=== PATIENT | male | born 1965 | race Caucasian/White ===

== ENCOUNTER 2016-07-30 10:30 | Emergency (ER) | payer SELFPAY ==
[2016-07-30] MEDS ORDERED: Aspirin 81 MG Tab.Chew PO ONE (10:41)
--- NOTE | 2016-07-30 10:49 | EDM.PDOC ---
ED HPI GENERAL MEDICAL PROBLEM - General Chief Complaint: Chest Pain Stated Complaint: CHEST PAINS Time Seen by Provider: 07/30/16 10:40 Source of Information: Reports: Patient History Limitations: Reports: No Limitations - History of Present Illness INITIAL COMMENTS - FREE TEXT/NARRATIVE: HISTORY AND PHYSICAL: History of present illness: [Patient comes to the emergency room for evaluation of chest pain. This is been occurring on and off for the past 2-3 weeks. He is new to [facility] and has not established care with a local primary care provider. His became more concerned about the chest pain that he was experiencing and insisted that he reports the ER for evaluation today. He states that he has not any pain in his chest for the past 2-3 days. The pain has occurred a total of 5-6 times over the past 2-3 weeks, and always occurs when he is exerting himself. he's never had any chest pain that occurred at rest. 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 He has experienced the pain in his chest when working. He describes the pain as a heaviness in the center of his chest without radiation. No stabbing or shooting pain. He denies jaw neck shoulder and arm pain. He does not have any significant shortness of breath when chest pain occurs. Pain typically lasts 30-60 seconds and then resolves without incident. He has not taken any medications for his symptoms. Medical history is significant for hypertension. For which he takes 100 mg of atenolol and 100 mg of losartan daily. Did not take his medications today. Denies personal history of heart attack stroke or diabetes. Mother's side of the family is significant for GA though none in patient's mother or patient siblings. Patient smokes one half pack of cigarettes per day but has not smoked in the last 6 days. No recent illness or infection. No recent surgeries or hospitalizations. No change in appetite. Denies abdominal pain, nausea vomiting constipation diarrhea. No dysuria or change in stools.] Review of systems: As per history of present illness and below otherwise all systems reviewed and negative. Past medical history: As per history of present illness and as reviewed below otherwise noncontributory. Surgical history: As per history of present illness and as reviewed below otherwise noncontributory. Social history: No reported history of drug or alcohol abuse. Family history: As per history of present illness and as reviewed below otherwise noncontributory. Physical exam: HEENT: Atraumatic, normocephalic. Oral mucous membranes are moist. neck supple, nontender, trachea midline no lymphadenopathy.. Lungs: Clear to auscultation, breath sounds equal bilaterally, chest nontender. Heart: S1S2, regular rate rhythm. negative for clicks, murmurs, rubs, or JVD. Abdomen: Soft, nondistended, nontender. Pelvis: Stable nontender. Genitourinary: Deferred. Rectal: Deferred. Extremities: Atraumatic, patient is ambulatory without assistance or abnormality. negative for cords or calf pain. Neuro: Awake, alert, oriented. Motor and sensory unremarkable throughout. Exam nonfocal. Diagnostics: [EKG, chest x-ray, CBC, CMP, troponin] Therapeutics: [Aspirin 324 mg chewed] Impression: [Chest pain] Plan: [EKG shows normal sinus rhythm. Troponin negative. CBC and CMP are unremarkable. Patient remains pain-free while in the ER. Rx given for nitroglycerin 0.4 mg #1 bottle sig one tablet sublingually as instructed x 3, 0 refills. Instructed on use. Start aspirin 325 mg daily. 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 Establish w/ a local PCP. All patient's questions are answered and concerns are addressed. ] Definitive disposition and diagnosis as appropriate pending reevaluation and review of above. chest Pain Score (Numeric/FACES): 1 - Related Data Allergies Allergy/AdvReac Type Severity Reaction Status Date / Time No Known Allergies Allergy Verified 07/30/16 10:35 Home Meds: Home Meds Atenolol 100 mg PO DAILY 07/30/16 [History] Loratadine [Claritin] 10 mg PO DAILY 07/30/16 [History] Losartan Potassium 100 mg PO DAILY 07/30/16 [History] ED ROS GENERAL - Review of Systems Review Of Systems: ROS reveals no pertinent complaints other than HPI. ED EXAM, GENERAL - Physical Exam Exam: See Below Course - Vital Signs Last Recorded V/S: Last Vital Signs Temp 98 F 07/30/16 10:38 Pulse 78 07/30/16 13:11 Resp 16 07/30/16 13:11 BP 160/70 H 07/30/16 13:11 Pulse Ox 98 07/30/16 13:11 - Orders/Labs/Meds Orders: Active Orders 24 hr Category Date Time Status EKG Documentation Completion [RC] STAT Care 07/30/16 10:41 Active Chest 1V Frontal [CR] Stat Exams 07/30/16 10:45 Taken Labs: Laboratory Tests 07/30/16 07/30/16 07/30/16 Range/Units 10:45 10:45 10:45 WBC 8.31 (4.0-11.0) K/uL RBC 4.83 (4.50-5.90) M/uL Hgb 15.0 (13.0-17.0) g/dL Hct 45.3 (38.0-50.0) % MCV 93.8 (80.0-98.0) fL MCH 31.1 (27.0-32.0) pg MCHC 33.1 (31.0-37.0) g/dL RDW Std Deviation 47.1 (28.0-62.0) fl RDW Coeff of Delia 14 (11.0-15.0) % Plt Count 228 (150-400) K/uL MPV 11.50 (7.40-12.00) fL Neut % (Auto) 56.2 (48.0-80.0) % Lymph % (Auto) 32.1 (16.0-40.0) % [place] % (Auto) 7.0 (0.0-15.0) % Eos % (Auto) 4.3 (0.0-7.0) % Baso % (Auto) 0.4 (0.0-1.5) % Neut # (Auto) 4.7 (1.4-5.7) K/uL Lymph # (Auto) 2.7 H (0.6-2.4) K/uL [place] # (Auto) 0.6 (0.0-0.8) K/uL Eos # (Auto) 0.4 (0.0-0.7) K/uL Baso # (Auto) 0.0 (0.0-0.1) K/uL Nucleated RBC % 0.0 /100WBC Nucleated RBCs # 0 K/uL Sodium 140 (136-146) mmol/L Potassium 4.1 (3.5-5.1) mmol/L Chloride 108 (98-110) mmol/L Carbon Dioxide 24 (21-31) mmol/L BUN 16 (6.0-23.0) mg/dL Creatinine 1.1 (0.6-1.5) mg/dL Est Cr Clr Drug Dosing 81.11 mL/min Estimated GFR (MDRD) > 60.0 ml/min Glucose 132 H (60-110) mg/dL Calcium 9.3 (8.8-10.8) mg/dL Total Bilirubin 0.5 (0.1-1.5) mg/dL AST 20 (5-40) IU/L ALT 29 (8-54) IU/L Alkaline Phosphatase 75 (40-150) Troponin I < 0.10 (0.0-0.29) NG/ML Total Protein 6.9 (6.0-8.0) g/dL Albumin 4.1 (3.5-5.0) g/dL Globulin 2.8 (2.0-3.5) g/dL Albumin/Globulin Ratio 1.5 (1.3-2.8) Meds: Medications Discontinued Medications Generic Name Dose Route Start Last Admin Trade Name Freq PRN Reason Stop Dose Admin Aspirin 324 mg 07/30/16 10:41 07/30/16 11:32 Aspirin PO 07/30/16 10:42 324 mg ONETIME ONE Administration Departure - Departure Time of Disposition: 12:40 Disposition: Home, Self-Care 01 Condition: good Clinical Impression: Chest pain Qualifiers: Chest pain type: unspecified Qualified Code(s): R07.9 - Chest pain, unspecified Instructions: Chest Pain Observation Referrals: PCP,None [Primary Care Provider] - Forms: ED Department Discharge Additional Instructions: The following information is given to patients seen in the emergency department who are being discharged to home. This information is to outline your options for follow-up care. We provide all patients seen in our emergency department with a follow-up referral. The need for follow-up, as well as the timing and circumstances, are variable depending upon the specifics of your emergency department visit. If you don't have a primary care physician on staff, we will provide you with a referral. We always advise you to contact your personal physician following an emergency department visit to inform them of the circumstance of the visit and for follow-up with them and/or the need for any referrals to a consulting specialist. The emergency department will also refer you to a specialist when appropriate. This referral assures that you have the opportunity for follow-up care with a specialist. All of these measure are taken in an effort to provide you with optimal care, which includes your follow-up. Under all circumstances we always encourage you to contact your private physician who remains a resource for coordinating your care. When calling for follow-up care, please make the office aware that this follow-up is from your recent emergency room visit. If for any reason you are refused follow-up, please contact the [facility] emergency department at and asked to speak to the emergency department charge nurse. 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 [address] [place] [phone] Call the above listed phone number to get scheduled for an appointment with Dr. Burns to discuss his chest pain. You have been prescribed nitroglycerin, take as directed. Take aspirin 325 mg daily. Return to ER as needed as discussed. Smoking. - My Orders Last 24 Hours: My Active Orders 07/30/16 10:41 EKG Documentation Completion [RC] STAT 07/30/16 10:45 Chest 1V Frontal [CR] Stat - Assessment/Plan Last 24 Hours: My Active Orders 07/30/16 10:41 EKG Documentation Completion [RC] STAT 07/30/16 10:45 Chest 1V Frontal [CR] Stat
[2016-07-30 11:29] LABS: CHLORIDE,CL 108 mmol/L (98-110); SODIUM,NA 140 mmol/L (136-146)
[2016-07-30 13:12] VITALS: BP 160/70
--- NOTE | 2016-07-30 20:40 | CR ---
EXAM DATE: 07/30/16 PATIENT'S AGE: 51 Patient: NAV PENNINGTON Facility: [place], [place] Site . Site : 1965 Study: XRay Chest Thoracic [id number] 11:17:20 AM Ordering Physician: Doctor Chase Final Report: INDICATION: Chest pain COMPARISON: none TECHNIQUE: Portable AP erect chest performed at 11:10 a.m. FINDINGS: The lungs are clear. There is no evidence pneumothorax. The heart, mediastinum and pulmonary vessels are of normal size. There is no evidence of pleural fluid. IMPRESSION: Negative chest. Dictated by Medhat Edwards MD @ Jul 30 2016 11:41AM (Electronic Signature) Report Signed by Proxy. JUDI
== END 2016-07-30 13:11 | disposition home or self-care (01) ==
LOC: MW.ED 10:30
DX: R07.9 Chest pain, unspecified (principal); I10 Essential (primary) hypertension; F17.210 Nicotine dependence, cigarettes, uncomplicated; Z79.899 Other long term (current) drug therapy
CPT/HCPCS: 36415; 71010; 80053; 84484; 85025; 93005; 99285; A9270; 99284

== ENCOUNTER 2016-08-09 11:56 | Emergency (ER) | payer SELFPAY ==
[2016-08-09] MEDS ORDERED: Aspirin 81 MG Tab.Chew PO ONE (12:00)
[2016-08-09] MEDS ORDERED: Sodium Chloride 0.9% 10 ML Syringe FLUSH PRN (12:00)
[2016-08-09] MEDS ORDERED: Sodium Chloride 0.9% 1,000 ML IV SCH (12:00)
[2016-08-09] MEDS ORDERED: Sodium Chloride 0.9% 2.5 ML Syringe FLUSH PRN (12:00)
--- NOTE | 2016-08-09 12:11 | EDM.PDOC ---
ED HPI GENERAL MEDICAL PROBLEM - General Chief Complaint: Cardiovascular Problem Stated Complaint: CHEST PAIN Time Seen by Provider: 08/09/16 11:59 - History of Present Illness INITIAL COMMENTS - FREE TEXT/NARRATIVE: HISTORY AND PHYSICAL: History of present illness: Patient 51-year-old white male who presents with return of chest pain he said 3 episodes over the last several days that have been exertional he had a similar episode approximately one week prior he has been seen by cardiology an outpatient and is getting worked up as an outpatient he presents here today at the request of his 2 to be 3 episodes his describes that have been slightly more consistent the is adamant that it has been exertional and relieved with rest he is without pain on arrival. Denies shortness breath palpitation nausea vomiting or other complaints Review of systems: As per history of present illness and below otherwise all systems reviewed and negative. Past medical history: As per history of present illness and as reviewed below otherwise noncontributory. Surgical history: As per history of present illness and as reviewed below otherwise noncontributory. Social history: No reported history of drug or alcohol abuse. Family history: As per history of present illness and as reviewed below otherwise noncontributory. Physical exam: HEENT: Atraumatic, normocephalic, pupils reactive, negative for conjunctival pallor or scleral icterus, mucous membranes moist, throat clear, neck supple, nontender, trachea midline. Lungs: Clear to auscultation, breath sounds equal bilaterally, chest nontender. Heart: S1S2, regular, negative for clicks, rubs, or JVD. Abdomen: Soft, nondistended, nontender. Negative for masses or hepatosplenomegaly. Negative for costovertebral tenderness. Pelvis: Stable nontender. Genitourinary: Deferred. Rectal: Deferred. Extremities: Atraumatic, negative for cords or calf pain. Neurovascular unremarkable. Neuro: Awake, alert, oriented. Cranial nerves II through XII unremarkable. Cerebellum unremarkable. Motor and sensory unremarkable throughout. Exam nonfocal. Diagnostics: CBC CMP troponin PT INR chest x-ray Therapeutics: IV O2 monitor aspirin 324 mg by mouth Impression: #1 chest pain Definitive disposition and diagnosis as appropriate pending reevaluation and review of above. - Related Data Allergies Allergy/AdvReac Type Severity Reaction Status Date / Time No Known Allergies Allergy Verified 08/09/16 12:11 Home Meds: Home Meds Atenolol 100 mg PO DAILY 07/30/16 [History] Loratadine [Claritin] 10 mg PO DAILY 07/30/16 [History] Losartan Potassium 100 mg PO DAILY 07/30/16 [History] Hydrochlorothiazide 0 mg PO DAILY 08/09/16 [History] Past Medical History - Past Health History Medical/Surgical History: Denies Medical/Surgical History Cardiovascular History: Reports: Hypertension Social & Family History - Family History Family Medical History: Noncontributory - Tobacco Use Smoking Status *Q: Current Every Day Smoker Years of Tobacco use: 30 Packs/Tins Daily: 1 - Caffeine Use Caffeine Use: Reports: Tea Caffeine Use Comment: 3 cups daily - Recreational Drug Use Recreational Drug Use: No ED ROS GENERAL - Review of Systems Review Of Systems: ROS reveals no pertinent complaints other than HPI. ED EXAM, GENERAL - Physical Exam Exam: See Below (See dictated) Course - Vital Signs Text/Narrative:: I discussed with patient and implications of chest pain it's recurrence in this circumstance and options including admission for observation and transfer the for scheduled echocardiography tomorrow and stress test on Tuesday he does have and sublingual nitroglycerin as prescribed prior in understands risks and benefits. He'll be discharged per his request Last Recorded V/S: Last Vital Signs Temp 36.5 C 08/09/16 12:01 Pulse 68 08/09/16 12:01 Resp 16 08/09/16 12:01 BP 133/93 H 08/09/16 12:01 Pulse Ox 98 08/09/16 12:01 - Orders/Labs/Meds Orders: Active Orders 24 hr Category Date Time Status EKG Documentation Completion [RC] STAT Care 08/09/16 12:00 Active Oxygen Therapy, ED [RC] ASDIRECTED Care 08/09/16 11:59 Active Pulse Oximetry [RC] ASDIRECTED Care 08/09/16 12:00 Active COMPREHENSIVE METABOLIC PN,CMP [CHEM] Stat Lab 08/09/16 12:05 Received Sodium Chloride 0.9% [Normal Saline] 1,000 ml Med 08/09/16 12:00 Active IV STAT Sodium Chloride 0.9% [Saline Flush] Med 08/09/16 12:00 Active 10 ml FLUSH ASDIRECTED PRN Sodium Chloride 0.9% [Saline Flush] Med 08/09/16 12:00 Active 2.5 ml FLUSH ASDIRECTED PRN Saline Lock Insert [OM.PC] Stat Oth 08/09/16 11:59 Ordered Medication Orders Sodium Chloride (Normal Saline) 1,000 mls @ 125 mls/hr IV STAT MARTY Last Admin: 08/09/16 12:36 Dose: 125 mls/hr Sodium Chloride (Saline Flush) 10 ml FLUSH ASDIRECTED PRN PRN Reason: Keep Vein Open Last Admin: 08/09/16 12:34 Dose: 10 ml Sodium Chloride (Saline Flush) 2.5 ml FLUSH ASDIRECTED PRN PRN Reason: Keep Vein Open Last Admin: 08/09/16 12:34 Dose: 2.5 ml Labs: Laboratory Tests 08/09/16 08/09/16 08/09/16 Range/Units 12:05 12:05 12:05 WBC 10.12 (4.0-11.0) K/uL RBC 4.97 (4.50-5.90) M/uL Hgb 15.5 (13.0-17.0) g/dL Hct 45.8 (38.0-50.0) % MCV 92.2 (80.0-98.0) fL MCH 31.2 (27.0-32.0) pg MCHC 33.8 (31.0-37.0) g/dL RDW Std Deviation 45.2 (28.0-62.0) fl RDW Coeff of Delia 14 (11.0-15.0) % Plt Count 297 (150-400) K/uL MPV 11.10 (7.40-12.00) fL Neut % (Auto) 57.5 (48.0-80.0) % Lymph % (Auto) 33.6 (16.0-40.0) % [place] % (Auto) 5.4 (0.0-15.0) % Eos % (Auto) 3.2 (0.0-7.0) % Baso % (Auto) 0.3 (0.0-1.5) % Neut # (Auto) 5.8 H (1.4-5.7) K/uL Lymph # (Auto) 3.4 H (0.6-2.4) K/uL [place] # (Auto) 0.6 (0.0-0.8) K/uL Eos # (Auto) 0.3 (0.0-0.7) K/uL Baso # (Auto) 0.0 (0.0-0.1) K/uL Nucleated RBC % 0.0 /100WBC Nucleated RBCs # 0 K/uL INR 1.03 (0.86-1.11) Troponin I < 0.10 (0.0-0.29) NG/ML Meds: Medications Generic Name Dose Route Start Last Admin Trade Name Freq PRN Reason Stop Dose Admin Sodium Chloride 1,000 mls @ 125 mls/hr 08/09/16 12:00 08/09/16 12:36 Normal Saline IV 125 mls/hr STAT MARTY Administration Sodium Chloride 10 ml 08/09/16 12:00 08/09/16 12:34 Saline Flush FLUSH 10 ml ASDIRECTED PRN Administration Keep Vein Open Sodium Chloride 2.5 ml 08/09/16 12:00 08/09/16 12:34 Saline Flush FLUSH 2.5 ml ASDIRECTED PRN Administration Keep Vein Open Discontinued Medications Generic Name Dose Route Start Last Admin Trade Name Freq PRN Reason Stop Dose Admin Aspirin 324 mg 08/09/16 12:00 08/09/16 12:33 Aspirin PO 08/09/16 12:01 324 mg ONETIME ONE Administration Departure - Departure Time of Disposition: 13:02 Disposition: Home, Self-Care 01 Condition: good Clinical Impression: Chest pain Qualifiers: Chest pain type: unspecified Qualified Code(s): R07.9 - Chest pain, unspecified Forms: ED Department Discharge Additional Instructions: The following information is given to patients seen in the emergency department who are being discharged to home. This information is to outline your options for follow-up care. We provide all patients seen in our emergency department with a follow-up referral. The need for follow-up, as well as the timing and circumstances, are variable depending upon the specifics of your emergency department visit. If you don't have a primary care physician on staff, we will provide you with a referral. We always advise you to contact your personal physician following an emergency department visit to inform them of the circumstance of the visit and for follow-up with them and/or the need for any referrals to a consulting specialist. The emergency department will also refer you to a specialist when appropriate. This referral assures that you have the opportunity for followup care with a specialist. All of these measure are taken in an effort to provide you with optimal care, which includes your followup. Under all circumstances we always encourage you to contact your private physician who remains a resource for coordinating your care. When calling for followup care, please make the office aware that this follow-up is from your recent emergency room visit. If for any reason you are refused follow-up, please contact the [facility] emergency department at and asked to speak to the emergency department charge nurse. Followup per schedule echocardiography and stress test with cardiology as discussed indications as prescribed return as needed as discussed - My Orders Last 24 Hours: My Active Orders 08/09/16 11:59 Oxygen Therapy, ED [RC] ASDIRECTED Saline Lock Insert [OM.PC] Stat 08/09/16 12:00 EKG Documentation Completion [RC] STAT Pulse Oximetry [RC] ASDIRECTED Sodium Chloride 0.9% [Normal Saline] 1,000 ml IV STAT Sodium Chloride 0.9% [Saline Flush] 10 ml FLUSH ASDIRECTED PRN Sodium Chloride 0.9% [Saline Flush] 2.5 ml FLUSH ASDIRECTED PRN 08/09/16 12:05 COMPREHENSIVE METABOLIC PN,CMP [CHEM] Stat - Assessment/Plan Last 24 Hours: My Active Orders 08/09/16 11:59 Oxygen Therapy, ED [RC] ASDIRECTED Saline Lock Insert [OM.PC] Stat 08/09/16 12:00 EKG Documentation Completion [RC] STAT Pulse Oximetry [RC] ASDIRECTED Sodium Chloride 0.9% [Normal Saline] 1,000 ml IV STAT Sodium Chloride 0.9% [Saline Flush] 10 ml FLUSH ASDIRECTED PRN Sodium Chloride 0.9% [Saline Flush] 2.5 ml FLUSH ASDIRECTED PRN 08/09/16 12:05 COMPREHENSIVE METABOLIC PN,CMP [CHEM] Stat
[2016-08-09 12:41] LABS: CHLORIDE,CL 104 mmol/L (98-110); SODIUM,NA 142 mmol/L (136-146)
--- NOTE | 2016-08-09 12:41 | CR ---
EXAMINATION: Portable chest radiograph. HISTORY: Shortness of breath. FINDINGS: The trachea is midline. The cardiomediastinal silhouette is within normal limits. No pulmonary infil trates, effusions or pneumothorax. Osseous structures appear unremarkable. IMPRESSION: No acute cardiopulmonary process.
[2016-08-09 13:15] VITALS: BP 118/78
== END 2016-08-09 13:12 | disposition home or self-care (01) ==
LOC: MW.ED 11:56
DX: R07.9 Chest pain, unspecified (principal); I10 Essential (primary) hypertension; F17.210 Nicotine dependence, cigarettes, uncomplicated; Z79.899 Other long term (current) drug therapy
CPT/HCPCS: 36415; 71010; 80053; 84484; 85025; 85610; 93005; 96360; 99285; A9270; J7040; 99284

== ENCOUNTER → 2016-08-10 | Outpatient (CLI) | payer SELFPAY ==
--- NOTE | 2016-08-11 15:19 | ECHO ---
The echocardiogram report can be seen in this patient's EMR in the Reports section. JUDI
== END ==
LOC: MW.US 12:44
PROVIDERS: ATTEND Internal Medicine
DX: R07.9 Chest pain, unspecified (principal)
CPT/HCPCS: 93306